=== PATIENT | female | born 1980 | race African-American/Black ===

== ENCOUNTER 2018-11-24 11:34 | Inpatient (IN) | payer MEDICARE, SELFPAY ==
[2018-11-24] MEDS ORDERED: ISOVUE-370 76%-LOCM 1 ML ONE (12:57)
[2018-11-24 13:14] LABS: #Lymphocytes 0.8 thou/uL (1.20-3.40); #Monocytes 0.2 thou/uL (0.11-0.59); #Neutrophils 5.1 thou/uL (1.40-6.50); %Basophils 0.1 % (0.0-1.0); %Eosinophils 0.4 % (0.0-10.0); %Lymphocytes 13.5 % (21.0-51.0); %Monocytes 3.2 % (0.0-10.0); %Neutrophils 82.9 % (42.0-75.0); Hemoglobin 11.9 g/dL (12.0-16.0); Mean Corpuscular Hemoglobin 29.8 pg (27.0-31.0); Mean Corpuscular Volume 90.3 fL (78.0-98.0); Mean Platelet Volume 7.3 fL (7.4-10.4); Platelet Count 334 thou/uL (130-400); RBC Distribution Width 12.6 % (11.5-14.5); Red Blood Cell (RBC) Count 3.99 mill/uL (4.20-5.40); White Blood Cell (WBC) Count 6.1 thou/uL (4.8-10.8)
[2018-11-24 13:36] LABS: ALT (SGPT) 7 U/L (8-55); AST (SGOT) 16 U/L (5-34); Alkaline Phosphatase 90 U/L (40-150); Anion Gap 9 mmol/L (10-20); BUN (Urea Nitrogen) 6 mg/dL (7.0-18.7); Bilirubin, Total Less than 0.2 mg/dL (0.2-1.2); Calc. Creatinine Clearance 0 mL/min (70-130); Calcium 9.4 mg/dL (7.8-10.44); Carbon Dioxide 24 mmol/L (22-29); Chloride 111 mmol/L (98-107); Estimated GFR-MDRD 82; Globulin 3.4 g/dL (2.4-3.5); Glucose 100 mg/dL (70-105); Lipase 26 U/L (8-78); Potassium 4.2 mmol/L (3.5-5.1); Protein, Total 7.4 g/dL (6.0-8.3); Sodium 140 mmol/L (136-145)
--- NOTE | 2018-11-24 14:11 | RAD ---
FRONTAL RADIOGRAPH CHEST: Date: 11/24/18 COMPARISON: None. HISTORY: Vomiting, abdominal pain, chest pain, history of peptic ulcer disease. FINDINGS: Clips in the upper abdomen suggest prior cholecystectomy. No pneumothorax or pleural fluid. No focal consolidation or alveolar edema. IMPRESSION: No acute findings. POS: OFF
[2018-11-24] MEDS ORDERED: Pantoprazole 80 MG, Admixture Fee 1 EACH in Sodium Chloride 0.9% 100 ML IVPB SCH (14:15)
[2018-11-24] MEDS ORDERED: Pantoprazole 40 MG VIAL ONE (14:39)
[2018-11-24] MEDS ORDERED: Sodium Chloride 0.9% 100 ML ONE (14:39)
[2018-11-24] MEDS ORDERED: Ondansetron PF 4 MG/2 ML Vial ONE (14:39)
[2018-11-24 15:25] LABS: BHCG - Serum Negative (NEGATIVE); Pregs Control Background? CLEAR/WHITE (CLR/WHITE); Pregs Control Bar Appear? YES (CONTROL BAR)
--- NOTE | 2018-11-24 16:12 | CT ---
CT ABDOMEN AND PELVIS WITH IV CONTRAST: 11/24/18 HISTORY: Abdominal pain, vomiting. FINDINGS: There are no previous exams for comparison. The lung bases are clear. The patient is post cholecystectomy. The liver, spleen, pancreas, adrenal g lands and kidneys are normal. No free air or lymphadenopathy is seen in the abdomen or pelvis. A fibroid uterus is present. Ovaries are visualized. A small amount of free fluid is seen in the pelv is. The small bowel loops are not abnormally dilated. A normal appearing appendix is seen. The abdomi nal aorta is of normal caliber. No acute osseous abnormalities are seen. IMPRESSION: Fibroid uterus with small amount of free fluid in the pelvis. POS: [facility]
[2018-11-24 16:42] LABS: Bilirubin Negative (Negative); Blood, Urine Negative (Negative); Clarity Clear (Clear); Glucose, Urine (Dipstick) Normal (Negative); Leukocyte 250 Leu/uL (Negative); Nitrite Negative (Negative); Protein, Urine (Dipstick) Negative (Neg-Trace); Urobilinogen Normal mg/dL (Less than 2)
[2018-11-24 16:43] LABS: Bacteria/HPF 1+ HPF (None Seen)
[2018-11-24] MEDS ORDERED: Ondansetron PF 4 MG/2 ML Vial IVP PRN ×2 (16:54→17:21)
[2018-11-24] MEDS ORDERED: Ondansetron ODT 4 MG TAB SL PRN (16:54)
[2018-11-24] MEDS ORDERED: Sodium Chloride 0.9% 1,000 ML IV SCH ×2 (16:54→17:21)
[2018-11-24] MEDS ORDERED: Morphine 4 MG/ML VIAL SLOW IVP PRN (16:54)
--- NOTE | 2018-11-24 17:02 | HP ---
PRIMARY CARE PHYSICIAN: [facility]. REASON FOR ADMISSION: Coffee-ground emesis. HISTORY OF PRESENT ILLNESS: A 37-year-old female, who presented to emergency room today with complaint of abdominal pain. The patient has abdominal pain, which predominantly in epigastric region without any radiation. Today, she had several times vomiting. Per the patient, she had initially scant amount of blood with vomitus, and subsequently, she was having coffee-ground emesis sporadically total 4 or 5 times. She does not have any NSAID abuse. She does drink alcohol occasionally. She has smoking history. The patient did not have any bowel movement today. She is not sure about melena or hematochezia. She did not have any dizziness, lightheadedness, or syncopal episode. The patient was experiencing intermittent abdominal pain and vomiting, which has been improved after emergency room treatment. Paramedics gave her 4 mg Zofran, and in the emergency room, the patient was given Protonix bolus, and Protonix drip was started. Routine blood test was unremarkable with hemoglobin 11.9. Stool guaiac test was negative. When I saw this patient, at that time, the patient was feeling much better. Her abdominal pain resolved and she did not have any further vomiting here in the emergency room. When she presented to emergency room, at that time, Paramedics and ER physician noted dry blood over her lip. PAST MEDICAL HISTORY: Reviewed and negative. PAST SURGICAL HISTORY: Cholecystectomy. PAST PSYCHIATRIC HISTORY: Reviewed and negative. SOCIAL HISTORY: The patient drinks alcohol socially. She abuses marijuana periodically. She is also smoking cigarettes. FAMILY HISTORY: No family history of stroke, cancer, or coronary artery disease. ALLERGIES: ASPIRIN. CURRENT HOME MEDICATIONS: The patient is not taking any prescribed or non-prescribed medication. REVIEW OF SYSTEMS: CONSTITUTIONAL: Negative for weight loss or gain, ability to conduct usual activities. SKIN: Negative for rash, itching. EYES: Negative for double vision, pain. ENT/MOUTH: Negative for nose bleeding, neck stiffness, pain, tenderness. CARDIOVASCULAR: Negative for palpitations, dyspnea on exertion, orthopnea. RESPIRATORY: Negative for shortness of breath, wheezing, cough, hemoptysis, fever or night sweats. GASTROINTESTINAL: Negative for poor appetite, abdominal pain, heartburn, nausea, vomiting, constipation, or diarrhea. GENITOURINARY: Negative for urgency, frequency, dysuria, nocturia. MUSCULOSKELETAL: Negative for pain, swelling. NEUROLOGIC/PSYCHIATRIC: Negative for anxiety, depression. ALLERGY/IMMUNOLOGIC: Negative for skin rash, bleeding tendency. Please see my HPI for pertinent positives and negatives. All other review of systems reviewed and negative except as mentioned in HPI. EMERGENCY ROOM COURSE: The patient was given Protonix bolus and subsequently Protonix drip was started. The patient was given IV fluid and Zofran. PHYSICAL EXAMINATION: VITAL SIGNS: Currently, blood pressure 103/73, pulse 77, respiratory rate 16, temperature 98.2, saturation 100% on room air. Weight 65 kg. GENERAL: The patient is currently alert, awake, in no obvious acute distress. HEENT: Head; normocephalic, atraumatic. Eyes; conjunctivae are pale. Pupils are round and reactive to light. Extraocular muscle intact. ENT; oropharynx within normal limit. Moist mucous membrane. Pale mucous membrane. NECK: Supple. No JVD. No thyromegaly. No carotid bruit. No jugular venous distention. LUNGS: Clear to auscultation without any rhonchi or rales. CARDIAC: S1, S2 regular. No murmur. No gallop. No rub. ABDOMEN: Currently, the patient does have mild epigastric discomfort, but no peritoneal sign. No guarding. No rigidity. No rebound. No organomegaly. RECTAL: Examination done by ER physician, which was normal. BACK: Unremarkable. No CVA tenderness. EXTREMITIES: Upper extremities, passive movement of all joints are normal. Lower extremities, no edema. Good distal pulsation. SKIN: No skin rash. HEMATOLOGICAL: No lymphadenopathy. PSYCHIATRIC: Normal affect. NEUROLOGIC: Nonfocal examination. SIGNIFICANT LABORATORY DATA: EKG showing first-degree AV block, normal sinus rhythm. Chest x-ray based on my review, no acute cardiopulmonary process. Stool for guaiac negative. CBC; WBC 6.1, hemoglobin 11.9, platelets 334. BMP; sodium 140, potassium 4.2, BUN 6, creatinine 0.94, glucose 100, calcium 9.4. LFT; AST 16, ALT 7, alkaline phosphatase 90, albumin 4.0. test negative. Lipase 26. ASSESSMENT: 1. Epigastric abdominal pain, suspecting from gastritis, underlying peptic ulcer disease/Helicobacter pylori infection needs to be excluded. 2. Nausea and vomiting with hematemesis, suspecting esophagitis/Radha-Roberts tear versus gastritis. 3. Anemia, microcytic. 4. Cannabis abuse. PLAN: Medical admission. Protonix drip. Gastroenterology consultation for possible need of upper endoscopy. We will repeat labs tomorrow. H and H monitoring. Patient counseling given to avoid smoking, alcohol and marijuana abuse. Symptomatic treatment. DVT prophylaxis, SCD boots. No Lovenox because of GI bleeding. Gastrointestinal prophylaxis, Protonix drip. CODE STATUS: The patient is full code. The patient does not have any surrogate decision maker. DISPOSITION PLAN: Based on clinical course, we are expecting the patient's stay in hospital 24 to 48 hours. We will keep her on clear liquids only, and tomorrow morning, we will keep her n.p.o. Plan of care discussed with the patient and family member at bedside in the emergency room. Job ID: [id number]
[2018-11-24] MEDS ORDERED: Zolpidem Tartrate 5 MG TAB PO PRN (17:21)
[2018-11-24] MEDS ORDERED: Artificial Tears 18 DROP/0.9 ML EA EYE PRN (17:21)
[2018-11-24] MEDS ORDERED: Dicyclomine 10 MG CAP PO PRN (17:21)
[2018-11-24] MEDS ORDERED: Senokot S 8.6-50 MG TAB PO PRN (17:21)
[2018-11-24] MEDS ORDERED: Diabetic Tussin 200 MG/10 ML UDCUP PO PRN (17:21)
[2018-11-24] MEDS ORDERED: Bisacodyl 10 MG SUPP PR PRN (17:21)
[2018-11-24] MEDS ORDERED: Sodium Chloride 0.65% Nasal 44 ML BOT EA NARE PRN (17:21)
[2018-11-24] MEDS ORDERED: Loratadine 10 MG TAB PO PRN (17:21)
[2018-11-24] MEDS ORDERED: hydrALAZINE 20 MG/ML VIAL SLOW IVP PRN (17:21)
[2018-11-24] MEDS ORDERED: Ondansetron ODT 4 MG TAB PO PRN (17:21)
[2018-11-24] MEDS ORDERED: Loperamide HCl 2 MG CAP PO PRN (17:21)
[2018-11-24] MEDS ORDERED: Cepastat Lozenges 1 LOZ PO PRN (17:21)
[2018-11-24] MEDS ORDERED: HYDROcodone/Acetaminophen 5/325 mg Tablet PO PRN (17:21)
[2018-11-24] MEDS ORDERED: Acetaminophen 325 MG TAB PO PRN (17:21)
[2018-11-24] MEDS ORDERED: Calcium Carbonate 500 MG ChewTAB PO PRN (17:21)
[2018-11-24 17:25] VITALS: BP 111/71; TEMP 98.8
[2018-11-24] MEDS ORDERED: cefTRIAXone\\ROCEPHIN 1 GM in Sodium Chloride 0.9% 100 ML IVPB SCH (18:00)
--- NOTE | 2018-11-25 12:28 | DIS ---
DATE OF ADMISSION: 11/24/2018 DATE OF DISCHARGE: 11/24/2018 DISCHARGE DISPOSITION: Against medical advice. PRIMARY DISCHARGE DIAGNOSES: 1. Coffee-grounds emesis. 2. Nausea and vomiting. 3. Urinary tract infection. SECONDARY DISCHARGE DIAGNOSES: 1. Anxiety and depression. 2. Gastroesophageal reflux disease. PRIMARY PROCEDURE/OPERATION: None. RADIOLOGICAL INVESTIGATION: Abdomen and pelvis CT scan showed fibroid uterus. Chest x-ray normal. SIGNIFICANT LABORATORY DATA: Hemoglobin 11.9. Creatinine 0.94. DISCHARGE MEDICATIONS: The patient left against medical advice. CONTRAINDICATION: None. CODE STATUS: Full code. INPATIENT BURR FILER: None. ALLERGIES: ASPIRIN. DISCHARGE PLAN: Posthospital, the patient will follow up with primary care physician. HOSPITAL COURSE: Please see my HPI on the same day for admission. We admitted for epigastric abdominal pain, nausea, vomiting, and coffee-grounds emesis, but the patient decided to leave against medical advice later on. Job ID: [id number]
== END 2018-11-24 18:03 | disposition left against medical advice (07) | DRG 378 ==
LOC: ERS 11:34 → T4-B 15:24
PROVIDERS: ADMIT Internal Medicine; ATTEND Internal Medicine
DX: K92.0 Hematemesis (principal); N39.0 Urinary tract infection, site not specified; F17.210 Nicotine dependence, cigarettes, uncomplicated; F12.10 Cannabis abuse, uncomplicated; D50.9 Iron deficiency anemia, unspecified; F41.9 Anxiety disorder, unspecified; F32.9 Major depressive disorder, single episode, unspecified; Z90.49 Acquired absence of other specified parts of digestive tract; Z88.8 Allergy status to other drugs, medicaments and biological substances; Z71.6 Tobacco abuse counseling
CPT/HCPCS: 36415; 71045; 74177; 80053; 81003; 81015; 82274; 83690; 84703; 85025; 86850; 86900; 86901; 93005; 96365; 96366; 96375; C9113; J2405; J3490; Q9966

== ENCOUNTER 2018-12-16 23:39 | Emergency (ER) | payer MEDICARE ==
[2018-12-17 00:55] LABS: #Lymphocytes 1.3 thou/uL (1.20-3.40); #Monocytes 0.5 thou/uL (0.11-0.59); #Neutrophils 6.3 thou/uL (1.40-6.50); %Basophils 0.3 % (0.0-1.0); %Eosinophils 0.2 % (0.0-10.0); %Lymphocytes 16.5 % (21.0-51.0); %Monocytes 5.6 % (0.0-10.0); %Neutrophils 77.4 % (42.0-75.0); Hemoglobin 11.1 g/dL (12.0-16.0); Mean Corpuscular HGB CONC 32.7 g/dL (32.0-36.0); Mean Corpuscular Hemoglobin 29.2 pg (27.0-31.0); Mean Corpuscular Volume 89.3 fL (78.0-98.0); Mean Platelet Volume 7.3 fL (7.4-10.4); Platelet Count 293 thou/uL (130-400); RBC Distribution Width 12.8 % (11.5-14.5); Red Blood Cell (RBC) Count 3.79 mill/uL (4.20-5.40); White Blood Cell (WBC) Count 8.1 thou/uL (4.8-10.8)
[2018-12-17] MEDS ORDERED: Ondansetron PF 4 MG/2 ML Vial ONE (01:16)
[2018-12-17] MEDS ORDERED: Pantoprazole 40 MG VIAL ONE (02:37)
[2018-12-17 05:23] LABS: ALT (SGPT) 7 U/L (8-55); AST (SGOT) 14 U/L (5-34); Albumin 4.2 g/dL (3.5-5.0); Alkaline Phosphatase 84 U/L (40-150); Anion Gap 10 mmol/L (10-20); BUN (Urea Nitrogen) 6 mg/dL (7.0-18.7); Bilirubin, Total 0.5 mg/dL (0.2-1.2); Calc. Creatinine Clearance 0 mL/min (70-130); Calcium 9.2 mg/dL (7.8-10.44); Carbon Dioxide 24 mmol/L (22-29); Chloride 105 mmol/L (98-107); Estimated GFR-MDRD 76; Globulin 3.9 g/dL (2.4-3.5); Glucose 105 mg/dL (70-105); Lipase 10 U/L (8-78); Potassium 3.8 mmol/L (3.5-5.1); Protein, Total 8.1 g/dL (6.0-8.3); Sodium 135 mmol/L (136-145)
[2018-12-17 06:43] LABS: Bacteria/HPF None Seen HPF (None Seen); Bilirubin Negative (Negative); Blood, Urine Negative (Negative); Clarity Turbid (Clear); Glucose, Urine (Dipstick) Normal (Negative); Leukocyte 500 Leu/uL (Negative); Nitrite Negative (Negative); Protein, Urine (Dipstick) Negative (Neg-Trace); RBC/HPF 0-3 HPF (0-3); Squamous Epithelial 21-50 HPF (0-3); Urobilinogen Normal mg/dL (Less than 2)
[2018-12-17 06:44] LABS: Pregnancy Test - Urine (BHCG) Negative (Negative); Specific Gravity 1.015 (1.002-1.036)
[2018-12-17 06:45] LABS: Pregu Control Background? CLEAR/WHITE (CLR/WHITE); Pregu Control Bar Appear? YES (CONTROL BAR)
== END 2018-12-17 03:00 | disposition home or self-care (01) ==
LOC: ERS 23:39
DX: R11.2 Nausea with vomiting, unspecified (principal); R10.10 Upper abdominal pain, unspecified; R10.817 Generalized abdominal tenderness; R19.7 Diarrhea, unspecified
CPT/HCPCS: 36415; 80053; 81001; 81025; 83690; 85025; 93005; 96361; 96374; 96375; C9113; J2405

== ENCOUNTER 2021-09-15 22:20 | Emergency (ER) | payer MEDICARE, OTHER ==
[2021-09-15] MEDS ORDERED: Ondansetron ODT 4 MG TAB ONE (22:44)
[2021-09-15] MEDS ORDERED: Haloperidol Lactate 5 MG/ML VIAL ONE (22:50)
[2021-09-15 22:57] LABS: #Eosinphils 0.1 thou/uL (0.0-0.7); #Lymphocytes 2.1 thou/uL (1.20-3.40); #Monocytes 0.3 thou/uL (0.11-0.59); #Neutrophils 3.1 thou/uL (1.40-6.50); %Basophils 0.6 % (0.0-1.0); %Eosinophils 1.3 % (0.0-10.0); %Lymphocytes 37.4 % (21.0-51.0); %Monocytes 5.2 % (0.0-10.0); %Neutrophils 55.5 % (42.0-75.0); Hemoglobin 12.8 g/dL (12.0-16.0); Mean Corpuscular HGB CONC 32.4 g/dL (32.0-36.0); Mean Corpuscular Hemoglobin 30.8 pg (27.0-31.0); Mean Corpuscular Volume 95.1 fL (78.0-98.0); Mean Platelet Volume 7.2 fL (7.4-10.4); Platelet Count 311 thou/uL (130-400); RBC Distribution Width 11.9 % (11.5-14.5); Red Blood Cell (RBC) Count 4.15 mill/uL (4.20-5.40); White Blood Cell (WBC) Count 5.5 thou/uL (4.8-10.8)
[2021-09-15 23:16] LABS: ALT (SGPT) 7 U/L (8-55); AST (SGOT) 13 U/L (5-34); Albumin 4.3 g/dL (3.5-5.0); Alkaline Phosphatase 73 U/L (40-110); Anion Gap 15 mmol/L (10-20); BUN (Urea Nitrogen) 8 mg/dL (7.0-18.7); Bilirubin, Total 0.5 mg/dL (0.2-1.2); Calc. Creatinine Clearance 0 mL/min (70-130); Calcium 9.1 mg/dL (7.8-10.44); Carbon Dioxide 22 mmol/L (22-29); Chloride 106 mmol/L (98-107); Glucose 106 mg/dL (70-105); Lipase 130 U/L (8-78); Potassium 3.2 mmol/L (3.5-5.1); Protein, Total 8.3 g/dL (6.0-8.3); Sodium 140 mmol/L (136-145)
[2021-09-16] MEDS ORDERED: hydrOXYzine 25 MG TAB ONE (00:17)
[2021-09-16 04:15] LABS: Lactic Acid 1.1 mmol/L (0.5-2.2)
== END 2021-09-16 04:35 | disposition home or self-care (01) ==
LOC: ERS 22:20
DX: S60.421A Blister (nonthermal) of left index finger, initial encounter (principal); R11.2 Nausea with vomiting, unspecified; F41.9 Anxiety disorder, unspecified; R74.02 Elevation of levels of lactic acid dehydrogenase [LDH]; W57.XXXA Bitten or stung by nonvenomous insect and other nonvenomous arthropods, initial encounter; Z87.19 Personal history of other diseases of the digestive system
CPT/HCPCS: 36415; 80053; 82550; 83605; 83690; 85025; 94760; 96360; J1630; Q0162

== ENCOUNTER 2021-12-20 09:42 | Emergency (ER) | payer MEDICARE, OTHER | END 2021-12-20 12:21 | disposition left against medical advice (07) | LOC: ERS 09:42 | DX: Z53.21 Procedure and treatment not carried out due to patient leaving prior to being seen by health care provider (principal) ==

== ENCOUNTER 2022-11-19 23:47 | Emergency (ER) | payer MEDICAID, MEDICARE, OTHER ==
[2022-11-20 00:59] LABS: #Monocytes 0.4 thou/uL (0.11-0.59); #Neutrophils 4.2 thou/uL (1.40-6.50); %Basophils 0.2 % (0.0-1.0); %Eosinophils 0.4 % (0.0-10.0); %Lymphocytes 5.1 % (21.0-51.0); %Monocytes 7.7 % (0.0-10.0); %Neutrophils 86.4 % (42.0-75.0); Hematocrit 34.3 % (36.0-47.0); Hemoglobin 11.3 g/dL (12.0-16.0); Mean Corpuscular HGB CONC 32.9 g/dL (32.0-36.0); Mean Corpuscular Hemoglobin 29.5 pg (27.0-31.0); Mean Corpuscular Volume 89.6 fl (78.0-98.0); Mean Platelet Volume 9.7 fL (7.4-10.4); Platelet Count 308 10x3/uL (130-400); RBC Distribution Width 13.2 % (11.5-14.5); Red Blood Cell (RBC) Count 3.83 mill/uL (4.20-5.40); White Blood Cell (WBC) Count 4.9 10x3/uL (4.8-10.8)
[2022-11-20 01:23] LABS: ALT (SGPT) Less than 7 U/L (8-55); AST (SGOT) 13 U/L (5-34); Alkaline Phosphatase 75 U/L (40-110); Anion Gap 13 mmol/L (10-20); BUN (Urea Nitrogen) 7 mg/dL (7.0-18.7); Bilirubin, Total 0.3 mg/dL (0.2-1.2); Calc. Creatinine Clearance 0 mL/min (70-130); Carbon Dioxide 20 mmol/L (22-29); Chloride 105 mmol/L (98-107); Estimated GFR 75; Glucose 114 mg/dL (70-105); Lipase 12 U/L (8-78); Potassium 3.5 mmol/L (3.5-5.1); Sodium 134 mmol/L (136-145)
[2022-11-20] MEDS ORDERED: Ketorolac Tromethamine 30 MG/ML VIAL ONE (01:24)
== END 2022-11-20 02:35 | disposition home or self-care (01) ==
LOC: ERS 23:47
DX: K59.00 Constipation, unspecified (principal)
CPT/HCPCS: 74177; 80053; 83690; 85025; 96374; J1885

== ENCOUNTER 2022-12-27 11:31 | Emergency (ER) | payer MEDICARE | END 2022-12-27 14:49 | disposition home or self-care (01) | LOC: ERS 11:31 | DX: J02.0 Streptococcal pharyngitis (principal) | CPT/HCPCS: 87430; 99283 ==